=== PATIENT | female | born 1995 | race Caucasian/White ===

== ENCOUNTER 2022-08-11 11:59 | Emergency (ER) | payer SELFPAY ==
[~2022-08-11] VITALS: Ht 167.6 cm; Wt 55.0 kg
[2022-08-11 12:05] VITALS: BP 130/87
[2022-08-11] MEDS ORDERED: AMOX1TAB16 MT (13:57)
[2022-08-11] MEDS ORDERED: DEXAMETHASONE 4MG TABLET PO ONE (14:15)
== END 2022-08-11 14:47 | disposition home or self-care (01) ==
LOC: ER 11:59
DX: J02.9 Acute pharyngitis, unspecified (principal); R50.9 Fever, unspecified
CPT/HCPCS: 87070; 87430; 99283; J8540